=== PATIENT | male | born 1955 | race Caucasian/White ===

== ENCOUNTER 2022-08-15 06:48 | Day surgery (SDC) | payer MEDICARE, OTHER ==
[~2022-08-15] VITALS: Ht 162.6 cm; Wt 85.4 kg
[~2022-08-15 06:48] MED LIST: ASPI-1450 PO; ATOR40TA28 PO; DAPA5TAB PO; EZET10TA57 PO; GLYB-145 PO; ICOS0.5C PO; LISI-894 PO; METF-1211 PO; METO25XL PO; NITR0.4T52 SL; OMEP20 PO; PIOG30TA10 PO; PRAS10TA6 PO; SUCR1TAB28 PO
[2022-08-15] MEDS ORDERED: SODIUM CHLORIDE 0.9% 1,000 ML IV ONE (07:00)
[2022-08-15] MEDS ORDERED: GLYB2.5T76 PO (07:12)
[2022-08-15] MEDS ORDERED: AZIL1TAB3 PO (07:14)
[2022-08-15] MEDS ORDERED: SIME-12 PO (07:14)
[2022-08-15] MEDS ORDERED: OMEP20 PO (07:14)
[2022-08-15] MEDS ORDERED: DIAZEPAM 5 MG TABLET ONE (07:20)
[2022-08-15] MEDS ORDERED: ASPIRIN 81 MG CHEWABLE TABLET ONE (07:21)
[2022-08-15] MEDS ORDERED: DiphenhydrAMINE HCL 50 MG CAPSULE ONE (07:21)
[2022-08-15 07:56] LABS: GLUCOMETER DEV NAME(LOC) SDS.; GLUCOSE,POINT OF CARE 172 MG/DL (70-110)
[2022-08-15] MEDS ORDERED: LIDOCAINE/PF 1% 30 ML VIAL ONE (08:58)
[2022-08-15] MEDS ORDERED: IOHEXOL 300 MG/ML 100 ML VIAL ONE ×2 (08:58→09:44)
[2022-08-15] MEDS ORDERED: SODIUM BICARBONATE 50 MEQ/50 ML VIAL ONE (08:58)
[2022-08-15] MEDS ORDERED: HEPARIN SODIUM 1000 UNITS/NS 1,000 ML ONE (08:58)
[2022-08-15] MEDS ORDERED: DIAZEPAM 5 MG TABLET PO ONE (09:00)
[2022-08-15] MEDS ORDERED: ASPIRIN 81 MG CHEWABLE TABLET PO ONE (09:00)
[2022-08-15] MEDS ORDERED: DiphenhydrAMINE HCL 50 MG CAPSULE PO ONE (09:00)
[2022-08-15 09:04] VITALS: BP 173/81
[2022-08-15] MEDS ORDERED: MIDAZOLAM HCL 2 MG/2 ML VIAL ONE (09:08)
[2022-08-15] MEDS ORDERED: FentaNYL CITRATE PF 100 MCG/2 ML VIAL ONE (09:08)
[2022-08-15] MEDS ORDERED: HEPARIN SODIUM 1000 UNITS/NS 1,000 ML IARTER ONE (09:30)
[2022-08-15] MEDS ORDERED: MIDAZOLAM HCL 2 MG/2 ML VIAL IVP ONE (09:30)
[2022-08-15] MEDS ORDERED: FentaNYL CITRATE PF 100 MCG/2 ML VIAL IVP ONE (09:30)
[2022-08-15] MEDS ORDERED: LIDOCAINE 1% 30 ML/SOD BICARB 8.4% 4 ML SQ ONE (09:30)
[2022-08-15] MEDS ORDERED: IOHEXOL 300 MG/ML 100 ML VIAL ICOR ONE ×2 (09:30→10:00)
[2022-08-15] MEDS ORDERED: IOHEXOL 300 MG/ML 50 ML VIAL ONE ×2 (09:44→10:02)
[2022-08-15] MEDS ORDERED: HEPARIN SODIUM,PORCINE 1,000 UNITS/ML 10 ML VIAL IVP ONE (09:45)
[2022-08-15] MEDS ORDERED: IOHEXOL 300 MG/ML 50 ML VIAL ICOR ONE (10:00)
[2022-08-15 10:14] VITALS: BP 137/82
[2022-08-15] MEDS ORDERED: PRASUGREL HCL 10 MG TABLET PO ONE (10:30)
== END 2022-08-15 16:30 | disposition home or self-care (01) ==
LOC: CATHLAB 06:48
PROVIDERS: ATTEND Internal Medicine Interventional Cardiology
DX: I25.10 Atherosclerotic heart disease of native coronary artery without angina pectoris (principal); I10 Essential (primary) hypertension; E11.9 Type 2 diabetes mellitus without complications; Z79.899 Other long term (current) drug therapy; Z79.82 Long term (current) use of aspirin
CPT/HCPCS: 82962; 99152; 99153; 93005; 93458; 92978; C9600; C1757; C1887; C1760; C1874; J3010; J1644; J3490 ×2; J2250; Q9967 ×2; C1753; 75960; 92920; 92928